=== PATIENT | female | born 1995 | race American Indian/Alaskan Native ===

== ENCOUNTER 2020-05-31 12:17 | Emergency (ER) | payer OTHER ==
[2020-05-31 15:01] LABS: ANION GAP 12.6 mEq/L (7-13); CHLORIDE,CL 104 mmol/L (98-107); SODIUM,NA 140 mmol/L (136-145)
--- NOTE | 2020-05-31 15:37 | EDM.PDOC ---
Scribed by Ashlie Flores 05/31/20 1527 for Chloe Hollingsworth NP ED HPI GENERAL MEDICAL PROBLEM - General Chief Complaint: Respiratory Problem Stated Complaint: BREATING ISSUES/GENERAL Time Seen by Provider: 05/31/20 13:50 Source of Information: Reports: Patient, RN, RN Notes Reviewed History Limitations: Reports: No Limitations - History of Present Illness INITIAL COMMENTS - FREE TEXT/NARRATIVE: Patient is a 25-year-old female who presents to ER with complaint of shortness of breath. States she was seen in clinic yesterday. States shortness of breath that began Tuesday worse on Tuesday. Patient states history of depression/anxiety as well. Started on Celexa yesterday. She has weakness and shortness of breath. No chest pain, cough, fever, chills, nausea, vomiting and diarrhea. No exposure to COVID. No vaccinations. Onset: Gradual Duration: Getting Worse Location: Reports: Chest Quality: Reports: Ache Severity: Severe Improves with: Reports: None Worsens with: Reports: None Associated Symptoms: Reports: No Other Symptoms - Related Data Allergies Allergy/AdvReac Type Severity Reaction Status Date / Time No Known Allergies Allergy Verified 05/31/20 12:28 Home Meds: Home Meds Venlafaxine HCl [Venlafaxine HCl ER] 75 mg PO DAILY 05/31/20 [History] Past Medical History - Past Health History Medical/Surgical History: Denies Medical/Surgical History HEENT History: Reports: None Cardiovascular History: Reports: None Respiratory History: Reports: None Gastrointestinal History: Reports: None Genitourinary History: Reports: None [employer] History: Reports: None Musculoskeletal History: Reports: Other (See Below) (scoliosis) Neurological History: Reports: None Psychiatric History: Reports: Anxiety, Depression Endocrine/Metabolic History: Reports: None Hematologic History: Reports: None Immunologic History: Reports: None Oncologic (Cancer) History: Reports: None Dermatologic History: Reports: None - Infectious Disease History Infectious Disease History: Reports: None - Past Surgical History Head Surgeries/Procedures: Reports: None Social & Family History - Family History Family Medical History: No Pertinent Family History - Tobacco Use Tobacco Use Status *Q: Never Tobacco User - Caffeine Use Caffeine Use: Reports: Tea - Recreational Drug Use Recreational Drug Use: No ED ROS GENERAL - Review of Systems Review Of Systems: Comprehensive ROS is negative, except as noted in HPI. ED EXAM, GENERAL - Physical Exam Exam: See Below Exam Limited By: No Limitations General Appearance: Alert, WD/WN, No Apparent Distress Eye Exam: Bilateral Eye: EOMI, Normal Inspection, PERRL Ears: Normal External Exam, Normal Canal, Hearing Grossly Normal, Normal TMs Nose: Normal Inspection, Normal Mucosa, No Blood Throat/Mouth: Normal Inspection, Normal Lips, Normal Teeth, Normal Gums, Normal Oropharynx, Normal Voice, No Airway Compromise Head: Atraumatic, Normocephalic Neck: Normal Inspection, Supple, Non-Tender, Full Range of Motion Respiratory/Chest: No Respiratory Distress, Lungs Clear, Normal Breath Sounds, No Accessory Muscle Use, Chest Non-Tender GI/Abdominal: Normal Bowel Sounds, Soft, Non-Tender, No Organomegaly, No Distention, No Abnormal Bruit, No Mass (Female) Exam: Deferred Rectal (Female) Exam: Deferred Back Exam: Normal Inspection, Full Range of Motion, NT Extremities: Normal Inspection, Normal Range of Motion, Non-Tender, Normal Capillary Refill, No Pedal Edema Neurological: Alert, Oriented, CN II-XII Intact, Normal Cognition, Normal Gait, Normal Reflexes, No Motor/Sensory Deficits Psychiatric: Normal Affect, Normal Mood Skin Exam: Warm, Dry, Intact, Normal Color, No Rash Lymphatic: No Adenopathy Course - Vital Signs Last Recorded V/S: Last Vital Signs Temp 97.6 F 05/31/20 12:30 Pulse 80 05/31/20 12:30 Resp 18 05/31/20 12:30 BP 122/85 05/31/20 12:30 Pulse Ox 100 05/31/20 12:30 - Orders/Labs/Meds Labs: Laboratory Tests 05/31/20 05/31/20 05/31/20 Range/Units 14:03 14:03 14:04 WBC (5.0-10.0) 10^3/uL RBC (4.2-5.4) 10^6/uL Hgb (12.0-16.0) g/dL Hct (37.0-47.0) % MCV (80-100) fL MCH (27.0-34.0) pg MCHC (33.0-35.0) g/dL Plt Count (150-450) 10^3/uL Neut % (Auto) (42.2-75.2) % Lymph % (Auto) (20.5-50.1) % [place] % (Auto) (2-8) % Eos % (Auto) (1.0-3.0) % Baso % (Auto) (0.0-1.0) % D-Dimer, Quantitative (0-400) ng/mL Sodium (136-145) mmol/L Potassium (3.5-5.1) mmol/L Chloride (98-107) mmol/L Carbon Dioxide (21-32) mmol/L Anion Gap (7-13) mEq/L BUN (7-18) mg/dL Creatinine (0.55-1.02) mg/dL Est Cr Clr Drug Dosing mL/min Estimated GFR (MDRD) BUN/Creatinine Ratio (No establ ref range) Glucose (70-99) mg/dL Calcium (8.5-10.1) mg/dL Magnesium (1.8-2.4) mg/dL Total Bilirubin (0.2-1.0) mg/dL AST (15-37) U/L ALT (14-59) U/L Alkaline Phosphatase (46-116) U/L Total Protein (6.4-8.2) g/dL Albumin (3.4-5.0) g/dL Globulin Albumin/Globulin Ratio TSH, Ultra Sensitive (0.36-3.74) uIU/mL Urine Color Yellow (YELLOW) Urine Appearance Clear (CLEAR) Urine pH 7.0 (5.0-9.0) Ur Specific [place] 1.015 (1.005-1.030) Urine Protein Negative (NEGATIVE) Urine Glucose (UA) Negative (NEGATIVE) Urine Ketones Negative (NEGATIVE) Urine Occult Blood Negative (NEGATIVE) Urine Nitrite Negative (NEGATIVE) Urine Bilirubin Negative (NEGATIVE) Urine Urobilinogen 0.2 (0.2-1.0) mg/dL Ur Leukocyte Esterase Negative (NEGATIVE) Urine HCG, Qual Negative SARS-CoV-2 RNA (INDY) Positive H (NEGATIVE) 05/31/20 05/31/20 05/31/20 Range/Units 14:25 14:25 14:25 WBC 2.8 L (5.0-10.0) 10^3/uL RBC 4.16 L (4.2-5.4) 10^6/uL Hgb 11.4 L (12.0-16.0) g/dL Hct 35.1 L (37.0-47.0) % MCV 84.4 (80-100) fL MCH 27.4 (27.0-34.0) pg MCHC 32.5 L (33.0-35.0) g/dL Plt Count 216 (150-450) 10^3/uL Neut % (Auto) 46.8 (42.2-75.2) % Lymph % (Auto) 39.4 (20.5-50.1) % [place] % (Auto) 12.3 H (2-8) % Eos % (Auto) 1.1 (1.0-3.0) % Baso % (Auto) 0.4 (0.0-1.0) % D-Dimer, Quantitative 354 (0-400) ng/mL Sodium 140 (136-145) mmol/L Potassium 3.6 (3.5-5.1) mmol/L Chloride 104 (98-107) mmol/L Carbon Dioxide 27 (21-32) mmol/L Anion Gap 12.6 (7-13) mEq/L BUN 7 (7-18) mg/dL Creatinine 0.56 (0.55-1.02) mg/dL Est Cr Clr Drug Dosing 115.88 mL/min Estimated GFR (MDRD) > 60 BUN/Creatinine Ratio 12.5 (No establ ref range) Glucose 85 (70-99) mg/dL Calcium 8.4 L (8.5-10.1) mg/dL Magnesium 2.2 (1.8-2.4) mg/dL Total Bilirubin 0.2 (0.2-1.0) mg/dL AST 32 (15-37) U/L ALT 57 (14-59) U/L Alkaline Phosphatase 72 (46-116) U/L Total Protein 8.0 (6.4-8.2) g/dL Albumin 3.7 (3.4-5.0) g/dL Globulin 4.3 Albumin/Globulin Ratio 0.9 TSH, Ultra Sensitive 0.41 (0.36-3.74) uIU/mL Urine Color (YELLOW) Urine Appearance (CLEAR) Urine pH (5.0-9.0) Ur Specific [place] (1.005-1.030) Urine Protein (NEGATIVE) Urine Glucose (UA) (NEGATIVE) Urine Ketones (NEGATIVE) Urine Occult Blood (NEGATIVE) Urine Nitrite (NEGATIVE) Urine Bilirubin (NEGATIVE) Urine Urobilinogen (0.2-1.0) mg/dL Ur Leukocyte Esterase (NEGATIVE) Urine HCG, Qual SARS-CoV-2 RNA (INDY) (NEGATIVE) Departure - Departure Time of Disposition: 15:25 Disposition: Home, Self-Care 01 Condition: Fair Clinical Impression: COVID-19 - Discharge Information *PRESCRIPTION DRUG MONITORING PROGRAM REVIEWED*: No *COPY OF PRESCRIPTION DRUG MONITORING REPORT IN PATIENT CARMINA: No Instructions: COVID-19: What Your Test Results Mean - CDC, COVID-19 Frequently Asked Questions, 10 Things You Can Do to Manage Your COVID-19 Symptoms at Home - CDC, COVID-19: How to Protect Yourself and Others - CDC, COVID-19: Quarantine v s. Isolation - [facility] Forms: ED Department Discharge Additional Instructions: May use Tylenol as directed for pain/fever Use your albuterol inhaler as directed Follow-up with your primary care provider Go home and quarantine with your family, everyone must stay home and away from others Contact any close contacts that you are aware of You will receive a phone call from the [facility] or the [facility] in the coming days Drink plenty of fluids Sepsis Event Note (ED) - Evaluation Sepsis Screening Result: No Definite Risk - Focused Exam Vital Signs: Vital Signs Temp Pulse Resp BP Pulse Ox 05/31/20 12:30 97.6 F 80 18 122/85 100 I have read and agree with the documentation that has been completed regarding this visit. By signing this record, I attest that the documentation was completed in my physical presence and is an accurate record of the encounter.
== END 2020-05-31 15:30 | disposition home or self-care (01) ==
LOC: DL.ED 12:17
DX: U07.1 COVID-19 (principal)
CPT/HCPCS: 36415; 80053; 81003; 81025; 83735; 84443; 85025; 85379; 99283; 99284; U0002